=== PATIENT | male | born 1970 | race Caucasian/White ===

== ENCOUNTER 2020-10-09 03:13 | Inpatient (IN) ==
--- NOTE | 2020-10-09 03:55 | ERNOTE ---
Hip Pain HPI - Narrative Date of Service: 10/09/20 - General Chief Complaints:: Right hip fracture Source: patient Exam Limitations: no limitations - History of Present Illness Timing/Duration: this afternoon Severity: moderate Hip Pain Location: hip (R) Method of Injury/Prior Injury: direct blow Modifying Factors - (Worsens): Reports: movement Associated Symptoms: groin pain Review of Systems - Review of Systems Constitutional: Present: no symptoms reported EENTM: Present: no symptoms reported Respiratory: Present: no symptoms reported Cardiology: Present: no symptoms reported Gastrointestinal/Abdominal: Present: no symptoms reported Genitourinary: Present: no symptoms reported Musculoskeletal: Present: no symptoms reported Skin: Present: no symptoms reported Neurological: Present: no symptoms reported Endocrine: Present: no symptoms reported Hematologic/Lymphatic: Present: no symptoms reported All Other Systems: All systems neg except as marked Pain Exam - Physical Exam General Appearance: Present: WD/WN, no apparent distress Eyes, Ears, Nose, Throat Exam: Present: normal ENT inspection Neck Exam: Present: non-tender, full range of motion Cardiovascular/Respiratory: Present: regular rate, rhythm, no M/R/G, normal peripheral pulses, normal breath sounds, no respiratory distress Gastrointestinal/Abdominal: Present: normal bowel sounds Back Exam: Present: normal inspection, no CVA tenderness Extremity Exam: Present: bony-point tenderness, pain with movement, unable to bear weight Neurologic: Present: no motor/sensory deficits Skin Exam: Present: normal color, warm/dry, no cyanosis ED Progress - Date and Time Seen: Date and Time: 10/09/20 03:52 Patient will be admitted Dr. Negron will perform surgery will admit to the hospitalist Departure - Departure Clinical Impression: Hip fracture, right Disposition: Still a patient Condition: Good
[2020-10-09] MEDS ORDERED: ONDANSETRON HCL/PF 2 MG/ML VIAL IV ONE (04:13)
[2020-10-09 04:30] LABS: Hematocrit 39.8 % (42.0-52.0); Hemoglobin 13.2 gm/dL (13.5-18.0); Mean Cell Volume 91.9 fl (78-100); Mean Corpuscular Hemoglobin 30.5 pg (27-31); Mean Corpuscular Hgb Conc 33.2 g/dl (32-36); Mean Platelet Volume 9.7 fl (8-11.3); Neutrophil % 87.2 % (42-75.0); Platelet Count 292 K/mm3 (150-450); Red Blood Count 4.33 M/mm3 (4.7-6.0); Red Cell Distribution Width 12.3 % (11.5-14.0); White Blood Count 24.1 K/mm3 (4.0-10.5)
[2020-10-09 04:37] LABS: Total Cells Counted 100
[2020-10-09 04:43] LABS: Albumin * 3.6 gm/dl (3.4-5.0); Anion Gap 13.1 mmol/L (6.8-13.8); BUN/Creatinine Ratio 13.3 (9.0-21.6); Bilirubin, Total 0.5 mg/dL (0.0-1.1); Ca. Corrected For Albumin 8.5 mg/dL (8.4-10.2); Calcium * 8.5 mg/dL (7.9-10.9); Carbon Dioxide 26.9 mmol/L (24-32.6)
[2020-10-09 04:46] LABS: Prothrombin Time (Patient) 10.7 Seconds (9.1-10.7)
[2020-10-09 04:48] LABS: INR 1.03 INR (0.92-1.08); Partial Thrombolplastin Time 21.3 Seconds (24-32)
[2020-10-09 05:00] LABS: Lymphocyte 11 % (20-51); Monocyte 5 % (0-9); Neutrophil 84 % (42-75); Neutrophil # 20.2 K/mm3 (1.3-6.0); Platelet Estimate Normal (NORMAL); RBC Morphology Normal (NORMAL)
[2020-10-09] MEDS ORDERED: DEXTROSE 5%-NORMAL SALINE 1,000 ML IV PRN (06:17)
[2020-10-09] MEDS ORDERED: MORPHINE SULFATE 4 MG/ML SYRG IV PRN (06:18)
[2020-10-09] MEDS ORDERED: ONDANSETRON HCL/PF 2 MG/ML VIAL IV PRN (06:18)
--- NOTE | 2020-10-09 06:58 | HP ---
Chief Complaint - Chief Complaint Date of Service: 10/09/20 History of Present Illness: Is a 50-year-old male with a prior history of inguinal hernia and obesity who presents to the emergency department after a mechanical fall. Specifically the patient was mowing his lawn with his 0 turn mower and came to store his mower on his truck but driving up a ramp when the ramp gave out and the patient fell downward. He had intense right-sided hip pain, 10 out of 10, sharp, radiating down to his leg and limiting movement secondary to the pain with associated nausea, alleviated by resting still and aggravated by movement.The patient denies any prior history of surgical procedures. Patient denies any chest pain, shortness of breath, abdominal pain. Patient denies smoking or drinking.He can typically exert himself without any limitations. In the emergency department he was evaluated, vital signs were stable he was afebrile. White blood count was noted to be 21, potassium slightly elevated and creatinine up to 1.13. Imaging revealed a right hip fracture. Orthopedic surgery was consulted and is aware of the case and plans on intervention today. Medical History (Last Updated 10/09/20 @ 04:03 by Jessica Senior) Abdominal hernia Surgical History: Surgical History (Last Updated 10/09/20 @ 04:04 by Jessica Senior) No pertinent past surgical history Family History: Family History (Last Updated 10/09/20 @ 04:04 by Jessica Senior) Heart disease Father Social History: (Last Updated 10/09/20 @ 04:05 by Jessica Senior) Social History: adopted: No foster care: No Marital status: lives independently: Yes Tobacco: Smoking Status: Never smoker Alcohol: alcohol intake: never Substance Use: substance use type: does not use Review Of Systems (GEN) - Review of Systems Generalized/Overall Review: Present: No Symptoms Reported. Absent: Weakness, Chills EENTM: Present: No Symptoms Reported. Absent: Eye Pain, Blurred Vision Respiratory: Present: No Symptoms Reported. Absent: Cough, Shortness of Breath Cardiac: Present: No Symptoms Reported. Absent: Chest Pain, Palpitations, Syncope Abdominal: Present: Nausea. Absent: Vomiting, Abdominal Pain Genitourinary: Present: No Symptoms Reported. Absent: Hematuria, Dysuria Neurological: Present: No Symptoms Reported. Absent: Headache, Depressed Skin: Present: No Symptoms Reported. Absent: Lumps, Rash Immunizations: IMMUNIZATION HX Immunizations Up to Date Yes History of Influenza Vaccine Yes Allergies/Adverse Reactions: Allergies Allergy/AdvReac Type Severity Reaction Status Date / Time No Known Allergies Allergy Unverified 10/09/20 06:53 Home Medications: HOME MEDICATIONS NK 10/09/20 [Last Taken Unknown] Exam - Exam Vital Signs: Vital Signs - Last Taken Temp 36.1 C 10/09/20 06:18 Pulse 68 10/09/20 06:18 Resp 16 10/09/20 06:18 BP 138/78 10/09/20 06:18 Pulse Ox 99 10/09/20 06:18 Constitutional: Present: Alert, Oriented x3, Cooperative, Well developed, No distress, Middle aged, Thin and frail ENT Exam: Present: hearing grossly normal, hard of hearing Eye Exam: bilateral eye: normal inspection, EOMI, conjunctivae pale Respiratory: Present: chest non-tender, lungs clear, no respiratory distress Cardiovascular/Chest: Present: normal peripheral pulses, regular rate, rhythm, no edema Abdomen: Present: Normal bowel sounds, soft, nontender, nondistended Extremity: Present: swelling - swelling over right hip and limitation in motion of RLE secondary to pain, he is able to move his toes, RN reports good peripheral pulses Neurologic: 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 Absent: dizzy/light-headedness Appearance: Present: appropriate appearance, appropriate insight, neat Eye contact: Present: cooperative, good eye contact, normal speech Thoughts: Present: normal thought pattern, no apparent hallucination Diagnostic Studies: Abnormal Lab Results 10/09/20 10/09/20 10/09/20 Range/Units 04:25 04:25 04:25 WBC 24.1 H (4.0-10.5) K/mm3 RBC 4.33 L (4.7-6.0) M/mm3 Hgb 13.2 L (13.5-18.0) gm/dL Hct 39.8 L (42.0-52.0) % Immature Gran % (Auto) 0.60 H (0.001-0.429) % Immature Gran # (Auto) 0.15 H (0.000-0.0310) K/mm3 Neutrophils % 87.2 H (42-75.0) % Neutrophils % (Manual) 84 H (42-75) % Lymphocytes % 6.6 L (20-51) % Lymphocytes % (Manual) 11 L (20-51) % Neutrophils # 21.0 H (1.3-6.0) K/mm3 Neutrophils # (Manual) 20.2 H (1.3-6.0) K/mm3 Monocytes # 1.3 H (0.0-1.0) k/mm3 Monocytes # (Manual) 1.2 H (0.0-1.0) k/mm3 PTT ([place]) 21.3 L (24-32) Seconds Potassium 5.0 H (3.4-4.6) mmol/L Random Glucose 163 H (70-110) mg/dL Laboratory Results WBC 24.1 K/mm3 (4.0-10.5) H 10/09/20 04:25 RBC 4.33 M/mm3 (4.7-6.0) L 10/09/20 04:25 Hgb 13.2 gm/dL (13.5-18.0) L 10/09/20 04:25 Hct 39.8 % (42.0-52.0) L 10/09/20 04:25 MCV 91.9 fl (78-100) 10/09/20 04:25 MCH 30.5 pg (27-31) 10/09/20 04:25 MCHC 33.2 g/dl (32-36) 10/09/20 04:25 RDW 12.3 % (11.5-14.0) 10/09/20 04:25 Plt Count 292 K/mm3 (150-450) 10/09/20 04:25 MPV 9.7 fl (8-11.3) 10/09/20 04:25 Immature Gran % (Auto) 0.60 % (0.001-0.429) H 10/09/20 04:25 Immature Gran # (Auto) 0.15 K/mm3 (0.000-0.0310) H 10/09/20 04:25 Neutrophils % 87.2 % (42-75.0) H 10/09/20 04:25 Neutrophils % (Manual) 84 % (42-75) H 10/09/20 04:25 Lymphocytes % 6.6 % (20-51) L 10/09/20 04:25 Lymphocytes % (Manual) 11 % (20-51) L 10/09/20 04:25 Monocytes % 5.4 % (0.0-9) 10/09/20 04:25 Monocytes % (Manual) 5 % (0-9) 10/09/20 04:25 Eosinophils % 0.0 % (0.0-3.0) 10/09/20 04:25 Basophils % 0.2 % (0.0-1.0) 10/09/20 04:25 Nucleated RBC % 0.0 k/mm3 (0-1) 10/09/20 04:25 Neutrophils # 21.0 K/mm3 (1.3-6.0) H 10/09/20 04:25 Neutrophils # (Manual) 20.2 K/mm3 (1.3-6.0) H 10/09/20 04:25 Lymphocytes # 1.60 k/mm3 (1.5-3.5) 10/09/20 04:25 Lymphocytes # (Manual) 2.7 k/mm3 (1.5-3.5) 10/09/20 04:25 Monocytes # 1.3 k/mm3 (0.0-1.0) H 10/09/20 04:25 Monocytes # (Manual) 1.2 k/mm3 (0.0-1.0) H 10/09/20 04:25 Eosinophils # 0.0 k/mm3 (0.0-0.7) 10/09/20 04:25 Absolute Basophils 0.1 k/mm3 (0.0-0.1) 10/09/20 04:25 Platelet Estimate Normal (NORMAL) 10/09/20 04:25 RBC Morphology Normal (NORMAL) 10/09/20 04:25 PT 10.7 Seconds (9.1-10.7) 10/09/20 04:25 INR (Anticoag Therapy) 1.03 INR (0.92-1.08) 10/09/20 04:25 PTT ([place]) 21.3 Seconds (24-32) L 10/09/20 04:25 Sodium 137 mmol/L (132-142) 10/09/20 04:25 Plasma Sodium 138 mmol/L (130-142) 10/09/20 04:25 Potassium 5.0 mmol/L (3.4-4.6) H 10/09/20 04:25 Chloride 102 mmol/L (97-106) 10/09/20 04:25 Carbon Dioxide 26.9 mmol/L (24-32.6) 10/09/20 04:25 Anion Gap 13.1 mmol/L (6.8-13.8) 10/09/20 04:25 BUN 15 mg/dL (6-23) 10/09/20 04:25 Creatinine 1.13 mg/dL (0.4-1.4) 10/09/20 04:25 Est GFR (Non-Af Amer) 73 mL/min (60-130) 10/09/20 04:25 BUN/Creatinine Ratio 13.3 (9.0-21.6) 10/09/20 04:25 Random Glucose 163 mg/dL (70-110) H 10/09/20 04:25 Calcium 8.5 mg/dL (7.9-10.9) 10/09/20 04:25 Calcium Adj for Albumin 8.5 mg/dL (8.4-10.2) 10/09/20 04:25 Total Bilirubin 0.5 mg/dL (0.0-1.1) 10/09/20 04:25 AST 23 U/L (0-48) 10/09/20 04:25 ALT 25 U/L (19-67) 10/09/20 04:25 Alkaline Phosphatase 115 U/L (50-170) 10/09/20 04:25 Total Protein 7.0 gm/dL (6.2-8.2) 10/09/20 04:25 Albumin 3.6 gm/dl (3.4-5.0) 10/09/20 04:25 SARS-CoV-2 (PCR) Not detected (NotDetected) 10/09/20 04:00 Assessment/Plan - Assessment/Plan (1) Hip fracture, right Assessment: That patient had an accident with his mower while he was trying to drive it up a ramp onto his truck and the ramp gave out and he fell downward. His preoperative risk is low for a low risk procedure and he is operatively cleared pending an EKG -Admit to inpatient, stay medically necessary, greater than 2 midnights anticipated -Check EKG, urinalysis, chest x-ray -Type and screen -Morphine 2 mg IV every 4 as needed pain management -Zofran for nausea management which she is experiencing secondary to pain -Physical therapy and Occupational Therapy post procedure -Urinary catheter while immobile with plans to remove as soon as possible -Orthopedic surgery has been consulted Problem: Acute Qualifiers: Encounter type: initial encounter Fracture type: closed Qualified Code(s): S72.001A - Fracture of unspecified part of neck of right femur, initial encounter for closed fracture
[2020-10-09] MEDS: MORPHINE SULFATE 2 MG/ML DISP.SYRIN IV PRN ×2 (10:38→22:11)
--- NOTE | 2020-10-09 11:49 | PN ---
Progess Note - Interim Date: 10/09/20 Time: 10:00 Narrative: 10/09/20 11:48 Patient's surgical repair will be tomorrow, and he was informed. He required oxygen temporarily after being given pain meds, but has since weaned to room air.
--- NOTE | 2020-10-09 18:01 | CONS ---
[facility] - General Date of Service: 10/09/20 Narrative: Mr. Souza is a 50-year-old gentleman who was putting a mower back into his truck when the ramp dislodged and he rolled out resulting in injury to his right thigh. He was seen in outside emergency department found to have a comminuted right peritrochanteric femur fracture. He was transferred to our facility for further care. He denies any prior hip trauma or other areas of pain. Source: patient Exam Limitations: no limitations - History of Present Illness Timing/Duration: 24 hours Severity: mild Modifying Factors - (Worsens): Reports: movement Modifying Factors - (Improves): Reports: immobilization Associated Symptoms: denies symptoms Allergies/Adverse Reactions: Allergies No Known Allergies Allergy (Unverified 10/09/20 06:53) Home Medications: Home Medications Medication Instructions Recorded Last Taken NK 10/09/20 Unknown Medications - Medications Current Medications: Current Medications Morphine Sulfate (Morphine Sulfate 2 Mg/Ml Disp.Syrin) 2 mg IV Q4H PRN PRN Reason: Pain Stop: 11/08/20 06:19 Last Admin: 10/09/20 10:38 Dose: 2 mg Documented by: Review of Systems - Review of Systems Narrative: Negative except for above Physical Examination - Exam Narrative: Right lower extremity: Shortened and externally rotated: Thighs swollen but soft, palpable dorsalis pedis pulse, sensation intact light touch, is able to flex and extend his toes, no skin breakdown hip Vital Signs: Vital Signs - Last Taken Temp 36.4 C 10/09/20 14:00 Pulse 75 10/09/20 14:00 Resp 16 10/09/20 14:00 BP 138/78 10/09/20 14:00 Pulse Ox 98 10/09/20 14:00 O2 Oxygen Delivery Method Room Air Constitutional: Present: Alert, Oriented x3 - Results and Findings: Narrative: CT of pelvis and hip report reviewed: Images not available at this time, comminuted peritrochanteric right femur fracture without associated intra- articular pathology. Lab/Microbiology results last 24 hrs: Abnormal/Pending Laboratory Last 24 HRS 10/09/20 10/09/20 10/09/20 04:25 04:25 04:25 WBC 24.1 H RBC 4.33 L Hgb 13.2 L Hct 39.8 L Immature Gran % (Auto) 0.60 H Immature Gran # (Auto) 0.15 H Neutrophils % 87.2 H Neutrophils % (Manual) 84 H Lymphocytes % 6.6 L Lymphocytes % (Manual) 11 L Neutrophils # 21.0 H Neutrophils # (Manual) 20.2 H Monocytes # 1.3 H Monocytes # (Manual) 1.2 H PTT ([place]) 21.3 L Potassium 5.0 H Random Glucose 163 H - Assessments/Findings (1) Closed intertrochanteric fracture of right femur Diagnosis(s): We will imported images but otherwise the plan will be for cephalomedullary nail fixation of the right hip tomorrow. He will be n.p.o. after midnight. He will need 6 weeks of DVT prophylaxis. [facility] for antibiotic. Problem: Acute Qualifiers: Encounter type: initial encounter Fracture alignment: displaced Qualified Code(s): S72.141A - Displaced intertrochanteric fracture of right femur, initial encounter for closed fracture
[2020-10-09 18:13] LABS: Urine Appearance Slightly Cloudy (CLEAR); Urine Bilirubin Negative (NEGATIVE); Urine Color Yellow
[2020-10-09 18:14] LABS: Urine Blood 5 /ul (NEGATIVE); Urine Ketone Negative (NEGATIVE); Urine Nitrite Negative (NEGATIVE); Urine Protein Negative (NEGATIVE); Urine Urobilinogen Normal (NORMAL)
[2020-10-09 18:15] LABS: Urine Bacteria None Seen; Urine RBC 0-5 /hpf (0-5); Urine WBC 0-5 /hpf (0-5)
[2020-10-10] MEDS: MORPHINE SULFATE 2 MG/ML DISP.SYRIN IV PRN ×3 (05:59→20:39)
[2020-10-10] MEDS ORDERED: ceFAZolin SODIUM 1 GM in DEXTROSE 5 % IN WATER 100 ML IV PRN ×2 (06:00)
[2020-10-10] MEDS ORDERED: ceFAZolin SODIUM 1 GM VIAL IV PRN (06:00)
[2020-10-10] MEDS: RINGER'S SOLUTION,LACTATED 1,000 ML IV PRN ×3 (07:49→14:29)
--- NOTE | 2020-10-10 09:48 | PREOP NOTE ---
Preoperative Progress Note - Preoperative Changes Changes to Preop Condition?: No Changes
[2020-10-10] MEDS ORDERED: MORPHINE SULFATE 4 MG/ML SYRG ONE (10:33)
--- NOTE | 2020-10-10 10:52 | ANES ---
Anesthesia Pre Procedure Eval Vitals/Labs: Last Vital Signs Temp 37.0 C 10/10/20 06:45 Pulse 78 10/10/20 06:45 Resp 20 10/10/20 06:45 BP 136/79 10/10/20 06:45 Pulse Ox 95 10/10/20 06:45 HOME MEDICATIONS NK 10/09/20 [Last Taken Unknown] Allergies/Adverse Reactions: Allergies Allergy/AdvReac Type Severity Reaction Status Date / Time No Known Allergies Allergy Unverified 10/09/20 06:53 - Planned Procedure Planned Procedure: RIGHT HIP FX Medication List Reviewed:: Yes Allergies Verified: Yes Medical History (Last Reviewed 10/10/20 @ 10:51 by Linus Ritter CRNA) Abdominal hernia Surgical History (Last Reviewed 10/10/20 @ 10:51 by Linus Ritter CRNA) No pertinent past surgical history Family History (Last Reviewed 10/10/20 @ 10:51 by Linus Ritter CRNA) Father Heart disease - Family Anesthesia History Family History:: no untoward family reactions to anesthesia, no familial bleeding tendencies, no family history of clotting disorders, no family history of premature - Airway/Neck/Teeth Within Normal Limits:: Yes Teeth Condition: intact Mallampatti Score: 2 Thyromental (T-M) distance: > 6 cm Mandibulo Hyoid distance: > 3 cm - Respiratory Respiratory Physical: lungs clear Smoking Status: Never smoker Discussed smoking cessation including day of surgery: No Sleep Apnea currently treated: No Sleep Apnea by current assessment: Yes Discussed Risks/Treatment of ELOY: Yes - Cardiovascular Tolerate Activity: Good Heart Sounds: S1 & S2, Regular - Gastrointestinal NPO since: mn - Anesthesia Assessment and Plan ASA Class: PS, II Anesthesia Type Plan: Spinal
[2020-10-10] MEDS ORDERED: ceFAZolin SODIUM 1 GM VIAL ONE (11:20)
[2020-10-10] MEDS ORDERED: MIDAZOLAM HCL/PF 5 MG/ML VIAL ONE (12:01)
[2020-10-10] MEDS ORDERED: BUPIVACAINE HCL/PF 10 ML VIAL ONE (12:01)
[2020-10-10] MEDS ORDERED: PROPOFOL VIAL IV ONE (12:02)
[2020-10-10] MEDS ORDERED: DEXTROSE 5%-LACTATED RINGERS 1,000 ML IV PRN (14:41)
[2020-10-10] MEDS ORDERED: ACETAMINOPHEN 500 MG TABLET PO PRN (14:41)
[2020-10-10] MEDS ORDERED: MAG HYDROX/ALUMINUM HYD/SIMETH 30 ML UDC PO PRN (14:41)
[2020-10-10] MEDS ORDERED: MAGNESIUM HYDROXIDE 30 ML UDC PO PRN (14:41)
[2020-10-10] MEDS ORDERED: ZOLPIDEM TARTRATE 5 MG TABLET PO PRN (14:41)
[2020-10-10] MEDS ORDERED: diphenhydrAMINE HCL 50 MG/ML VIAL IV PRN (14:41)
--- NOTE | 2020-10-10 14:41 | OR ---
Operative Report - Dictated Report Narrative: Date: 10/10/2020 Surgeon: Cayetano Rowley M.D. Service Desk Team Lead: Harman Ayala PA-C (provided an essential set of skilled educated handset assisted with transfer, positioning, prepping, draping, placement of instruments, insertion of implants, irrigation, closure wounds, and placement of dressings all which could not be performed by the available surgical crew) Preoperative diagnosis: Closed comminuted right fidel-trochanteric femur fracture Postoperative diagnosis: Closed comminuted right fidel-trochanteric femur fracture Operations and procedures: 1. Closed reduction, cephalo-medullary fixation right peritrochanteric femur fracture 2. Cerclage cabling right proximal femur fracture 3. Intraoperative interpretation of radiographs Anesthesia: Spinal Specimens: None Estimated blood loss: 100 milliliters Retained implants: [employer] Trigen InterTAN 130 degree size 11.5 mm by 36 centimeter nail with 105 millimeter lag screw and 100 millimeter compression screw, with distal locking screws, [employer] accord 2 mm cerclage cable Complications: None Indications for procedure: Mr. Souza is a 50-year-old gentleman who injured the right leg after falling out of the back of his truck on his riding lawnmower when the ramps came out from under his mower. They were admitted to the hospital after being evaluated in the emergency department. Once the medical provider felt that they were stable for surgical treatment, the risks and benefits alternatives were discussed. The risks of , blood clots, bleeding, infection, nerve/tendon/blood vessel injury, malunion, nonunion, failure of implants, painful implants, arthrosis, and need for additional procedures were discussed. The extremity was marked and consent was obtained on the floor. Procedure: After marking the operative extremity on the floor, the patient was taken to the operating room. A timeout was performed. IV antibiotics consisting of Ancef were administered. A spinal anesthetic was induced by anesthesia, and the patient was then placed onto a fracture table with a well-padded perineal post. The nonoperative leg was placed in a well-padded traction boot in slight extension without any traction with an SCD on the leg. The operative leg was placed in a well-padded traction boot. Longitudinal traction, internal rotation, and flexion were utilized in order to reduce the fracture. Preliminary images were attained utilizing C-arm in both the AP and lateral views. This confirmed that we had obtained adequate visualization of the fracture as well as reduction. Next the hip was then prepped and draped in a standard sterile fashion. Next the guidewire was placed percutaneously proximal to the greater trochanter to marisela a starting point at the tip of the greater trochanter centered on the lateral view. This was passed down to the level below the lesser trochanter. A scalpel was utilized in order to dissect down to the greater trochanter in order to place the soft tissue protector down to bone. The entry drill was then placed down the proximal femur to the level of the lesser trochanter. We then placed a guidewire down the femoral canal. The length was measured to 36 cm. A series of reamers up to 13 mm was utilized while holding the fracture reduced. There was noted comminution proximally with a large butterfly fragment involving the lesser trochanter, a second free fragment of the greater trochanter, and an intertrochanteric extension. We then impacted the nail seating it fully. Using the alignment device on the outrigger, an incision was made over the lateral femur. Sharp dissection was carried through the iliotibial band down to the proximal femur. The guidewire was placed into the femoral head in a center- center position on AP and lateral views. The tip-apex distance of less than 25 mm combined was obtained. Once we felt that we had placed a guidewire in the appropriate position, it was measured. Next the compression screw site was drilled through the lateral femoral cortex. This was then drilled down to the appropriate depth, again confirming that we are within the confines the bone. The derotational bar was then placed and the lag screw was drilled. The lag screw was then secured in place seating fully ensuring that we were within the confines of the bone. The compression screw was then inserted allowing for compression while releasing the traction on the leg. Using C-arm this was visualized to allow for compression across the fracture site. Due to the comminution the proximal femur and the large free butterfly fragment of the lesser trochanter, a cerclage cable was placed in order to provide additional stabilization. This was placed circumferentially on the bone. It was then compressed and secured with a clamp and subsequently cut flush. Once is felt that we had adequately stabilized the intertrochanteric fracture, the distal interlocking screw was placed in a dynamic position and locking position using perfect circles distally. It was confirmed to be the appropriate length and within the nail on both AP and lateral views. The nail was secured allowing for controlled compression and the outrigger was removed. The wounds were then thoroughly irrigated. Final images were obtained. The hip was placed through range of motion and showed no crepitance. The deep fascia was closed with 0 Vicryl, the subcutaneous tissue with 3-0 Vicryl, and the skin was closed with zaira. Sterile dressings of Xeroform, 4 x 4, and tape were applied. All sponge, sharp, and instrument counts were correct prior to closing the wounds. The patient was then awoken and transferred to the postanesthesia care unit in stable condition.
--- NOTE | 2020-10-10 15:15 | ANES ---
Post Anesthesia Discharge - Transfer of Care Transfer of Care handoff given to nurse: Yes - Discharge from PACU Discharge from PACU when meets criteria: Yes
--- NOTE | 2020-10-10 15:16 | ANES ---
Post Anesthesia Assessment - Vital Signs Vitals: Last Vital Signs Temp 36.0 C 10/10/20 14:55 Pulse 84 10/10/20 15:10 Resp 18 10/10/20 15:10 BP 125/74 10/10/20 15:10 Pulse Ox 100 10/10/20 15:10 Airway Patency: Normal - Mental Status Level Of Consciousness: Awake - Pain Level Pain Score: 0 - N/V Assessment Nausea/Vomiting Presence: None Dehydration:: No
[2020-10-10] MEDS: ceFAZolin SODIUM 1 GM in DEXTROSE 5 % IN WATER 100 ML IV SCH ×4 (15:49→23:41)
--- NOTE | 2020-10-10 16:30 | PN ---
Subjective - Date and Time Seen Date: 10/10/20 Time: 16:20 Subjective Narrative: Dario reports pain is controlled, although still coming out from surgery. No nausea or shortness of breath. No concerns at this time. Objective - Vitals Vitals: Last Vital Signs Temp 36.5 C 10/10/20 15:15 Pulse 85 10/10/20 15:15 Resp 18 10/10/20 15:15 BP 132/69 10/10/20 15:15 Pulse Ox 98 10/10/20 15:15 - Abnormal Lab Findings Abnormal Lab Findings: Abnormal Lab Results 10/09/20 Range/Units 17:25 Urine Blood 5 H (NEGATIVE) /ul - Exam Constitutional: Present: Alert, Oriented x3, Cooperative ENT Exam: Present: hearing grossly normal Respiratory: Present: lungs clear, normal breath sounds Cardiovascular/Chest: Present: regular rate, rhythm, no murmur Abdomen: Present: Normal bowel sounds, soft, nontender, nondistended Cauti Physician Documentation - Urinary Catheter Management Urethral (Do) Date of Insertion: 10/09/20 Time of Insertion: 17:25 Assessment/Plan Plan Narrative: Medically doing well. Surgery went well today. Will be evaluated by PT and if doing well may consider discharge to home tomorrow. - Problems/Diagnosis (1) Closed intertrochanteric fracture of right femur Problem: Acute Qualifiers: Encounter type: initial encounter Fracture alignment: displaced Qualified Code(s): S72.141A - Displaced intertrochanteric fracture of right femur, initial encounter for closed fracture
[2020-10-10] MEDS: oxyCODONE HCL/ACETAMINOPHEN 1 TAB TABLET PO PRN ×2 (17:15→21:16)
[2020-10-10] MEDS: SENNOSIDES/DOCUSATE SODIUM 1 TAB TABLET PO SCH (20:40)
[2020-10-11] MEDS: oxyCODONE HCL/ACETAMINOPHEN 1 TAB TABLET PO PRN ×5 (01:36→23:55)
[2020-10-11] MEDS: ceFAZolin SODIUM 1 GM in DEXTROSE 5 % IN WATER 100 ML IV SCH ×2 (04:13)
[2020-10-11 06:22] LABS: Hematocrit 32.2 % (42.0-52.0); Hemoglobin 10.7 gm/dL (13.5-18.0); Mean Cell Volume 93.3 fl (78-100); Mean Corpuscular Hgb Conc 33.2 g/dl (32-36); Mean Platelet Volume 10.2 fl (8-11.3); Platelet Count 250 K/mm3 (150-450); Red Blood Count 3.45 M/mm3 (4.7-6.0); Red Cell Distribution Width 12.3 % (11.5-14.0); White Blood Count 19.9 K/mm3 (4.0-10.5)
[2020-10-11 06:29] LABS: Anion Gap 6.6 mmol/L (6.8-13.8); BUN/Creatinine Ratio 9.4 (9.0-21.6); Carbon Dioxide 33.4 mmol/L (24-32.6); Estimated Creat Clear 96.3
[2020-10-11] MEDS: RIVAROXABAN 20 MG TABLET PO SCH (09:25)
--- NOTE | 2020-10-11 14:57 | PN ---
Subjective - Date and Time Seen Date: 10/11/20 Time: 14:55 Subjective Narrative: Subjective: Reports some pain. Was able to walk in the [place] with therapy. Pain is well-controlled. Voiding without any complications. Tolerating by mouth intake. Denies any nausea or vomiting. Denies calf pain. Slept well. Physical exam: Alert and oriented to person, place and time Right lower extremity: Palpable dorsalis pedis pulse. Sensation grossly intact to light touch. Dressings with minimal drainage. Able to flex and extend ankle and toes. No excessive drainage. Calf and thigh are soft and nontender. Assessment: Postop day 1 status post right peritrochanteric femur fracture cephalomedullary fixation. Plan: Continue with physical and occupational therapy weightbearing as tolerated. Continue with anticoagulationshe will need 6 weeks of DVT prophylaxis. 24 hours postoperative prophylactic antibiotics. Pain control with goal to rely on oral medications. Continue bowel regimen. Will need 6 weeks with walker or assistive device to protect joint while ambulating during the recovery process. Discharge planning. From an orthopedic standpoint he is fine to be discharged home when stable. He will follow up in approximately 2 weeks with orthopedics. Keep his wounds clean and dry and covered with dry gauze. Objective - Vitals Vitals: Last Vital Signs Temp 36.3 C 10/11/20 10:00 Pulse 98 10/11/20 10:00 Resp 18 10/11/20 10:00 BP 131/77 10/11/20 10:00 Pulse Ox 96 10/11/20 10:00 - Abnormal Lab Findings Abnormal Lab Findings: Abnormal Lab Results 10/11/20 10/11/20 Range/Units 06:06 06:06 WBC 19.9 H (4.0-10.5) K/mm3 RBC 3.45 L (4.7-6.0) M/mm3 Hgb 10.7 L (13.5-18.0) gm/dL Hct 32.2 L (42.0-52.0) % Carbon Dioxide 33.4 H (24-32.6) mmol/L Anion Gap 6.6 L (6.8-13.8) mmol/L Random Glucose 132 H (70-110) mg/dL [facility] Phys[facility] Documentation - Urinary Catheter Management Urethral (Do) Date of Insertion: 10/09/20 Time of Insertion: 17:25 Date of Removal: 10/11/20 Time of Removal: 04:20 Assessment/Plan - Problems/Diagnosis (1) Closed intertrochanteric fracture of right femur Problem: Acute Qualifiers: Encounter type: subsequent encounter Fracture alignment: displaced Fracture healing: with routine healing Qualified Code(s): S72.141D - Displaced intertrochanteric fracture of right femur, subsequent encounter for closed fracture with routine healing
[2020-10-11] MEDS: SENNOSIDES/DOCUSATE SODIUM 1 TAB TABLET PO SCH (20:40)
--- NOTE | 2020-10-11 23:39 | PN ---
Subjective - Date and Time Seen Date: 10/11/20 Time: 16:00 Subjective Narrative: Dario has required assist of 2 to ambulate today. He is not ready for home discharge. Eating well, pain controlled. He reports no bowel movement, but no nausea. Objective - Vitals Vitals: Last Vital Signs Temp 37.2 C 10/11/20 22:45 Pulse 98 10/11/20 22:45 Resp 18 10/11/20 22:45 BP 140/76 H 10/11/20 22:45 Pulse Ox 97 10/11/20 22:45 - Abnormal Lab Findings Abnormal Lab Findings: Abnormal Lab Results 10/11/20 10/11/20 Range/Units 06:06 06:06 WBC 19.9 H (4.0-10.5) K/mm3 RBC 3.45 L (4.7-6.0) M/mm3 Hgb 10.7 L (13.5-18.0) gm/dL Hct 32.2 L (42.0-52.0) % Carbon Dioxide 33.4 H (24-32.6) mmol/L Anion Gap 6.6 L (6.8-13.8) mmol/L Random Glucose 132 H (70-110) mg/dL - Exam Constitutional: Present: Alert, Oriented x3, Cooperative ENT Exam: Present: hearing grossly normal Respiratory: Present: lungs clear, normal breath sounds, no respiratory distress Cardiovascular/Chest: Present: regular rate, rhythm, no murmur Abdomen: Present: Normal bowel sounds, soft, nontender, nondistended Skin Exam: Present: normal color, warm/dry, no cyanosis Appearance: Present: appropriate appearance, appropriate insight Eye contact: Present: cooperative, good eye contact, normal speech Thoughts: Present: normal thought pattern, no apparent hallucination [facility] Phys[facility] Documentation - Urinary Catheter Management Urethral (Do) Date of Insertion: 10/09/20 Time of Insertion: 17:25 Date of Removal: 10/11/20 Time of Removal: 04:20 Assessment/Plan Plan Narrative: Medically doing well. Unsafe for home discharge as he is requiring two person assist. Continue to work with PT - Problems/Diagnosis (1) Closed intertrochanteric fracture of right femur Problem: Acute Qualifiers: Encounter type: subsequent encounter Fracture alignment: displaced Fracture healing: with routine healing Qualified Code(s): S72.141D - Displaced intertrochanteric fracture of right femur, subsequent encounter for closed fracture with routine healing
[2020-10-12] MEDS: oxyCODONE HCL/ACETAMINOPHEN 1 TAB TABLET PO PRN ×4 (04:32→22:18)
[2020-10-12] MEDS: RIVAROXABAN 20 MG TABLET PO SCH (09:18)
--- NOTE | 2020-10-12 16:21 | PN ---
Subjective - Date and Time Seen Date: 10/12/20 Time: 16:19 Subjective Narrative: Dario reports pain is controlled. He was able to walk to the end of the [place]. PT thinks he needs another day or two before discharge. He is passing gas, but no BM yet. No fever, shortness of breath, or nausea. Objective - Vitals Vitals: Last Vital Signs Temp 36.1 C 10/12/20 14:36 Pulse 102 H 10/12/20 14:36 Resp 20 10/12/20 14:36 BP 123/69 10/12/20 14:36 Pulse Ox 94 10/12/20 14:36 - Exam Constitutional: Present: Alert, Oriented x3, Cooperative ENT Exam: Present: hearing grossly normal Respiratory: Present: lungs clear, normal breath sounds, no respiratory distress Cardiovascular/Chest: Present: regular rate, rhythm, no murmur Abdomen: Present: Normal bowel sounds, soft, nontender, nondistended, no rebound tenderness Skin Exam: Present: normal color, warm/dry, no cyanosis [facility] Physician Documentation - Urinary Catheter Management Urethral (Do) Date of Insertion: 10/09/20 Time of Insertion: 17:25 Date of Removal: 10/11/20 Time of Removal: 04:20 Assessment/Plan Plan Narrative: Medically doing well. Physically improving and potentially able to discharge in the next 1-2 days. - Problems/Diagnosis (1) Closed intertrochanteric fracture of right femur Problem: Acute Qualifiers: Encounter type: subsequent encounter Fracture alignment: displaced Fracture healing: with routine healing Qualified Code(s): S72.141D - Displaced intertrochanteric fracture of right femur, subsequent encounter for closed fracture with routine healing
[2020-10-12] MEDS: SENNOSIDES/DOCUSATE SODIUM 1 TAB TABLET PO SCH (21:02)
[2020-10-12 21:05] VITALS: BP 111/63
== END 2020-10-12 23:59 | disposition still patient (30) | DRG 482 ==
LOC: ER 03:13 → MS 05:36
PROVIDERS: ADMIT Internal Medicine; ATTEND Family Medicine